=== PATIENT | female | born 1995 | race Caucasian/White ===

== ENCOUNTER 2020-06-26 02:14 | Emergency (ER) | payer BC ==
[~2020-06-26] VITALS: Ht 167.6 cm; Wt 53.2 kg
[2020-06-26 02:20] VITALS: TEMP 97.6
[2020-06-26] MEDS ORDERED: SPRINTEC 35 MCG1 TAB PO (02:24)
[2020-06-26 03:33] LABS: ALBUMIN 3.7 gm/dL (3.5-5.0); BILIRUBIN,TOTAL 0.6 mg/dL (0.0-1.0); CALCIUM 8.7 mg/dL (8.4-10.2); CREATININE, serum 0.65 (0.52-1.25); POTASSIUM 3.6 mmol/L (3.4-5.0); TOTAL PROTEIN 6.6 gm/dL (6.4-8.2)
[2020-06-26 04:30] VITALS: BP 114/70; PULSE 78
== END 2020-06-26 04:30 | disposition home or self-care (01) ==
LOC: COL.ER 02:14
PROVIDERS: Emergency Medicine
DX: M79.662 Pain in left lower leg (principal); Z32.02 Encounter for pregnancy test, result negative; Z79.83 Long term (current) use of bisphosphonates
CPT/HCPCS: J1650

== ENCOUNTER → 2020-06-27 | Outpatient (CLI) | payer BC ==
[~2020-06-27] MED LIST: SPRINTEC 35 MCG1 TAB PO
== END ==
LOC: COL.VAS 12:25
DX: M79.662 Pain in left lower leg (principal)